=== PATIENT | male | born 1955 | race Caucasian/White ===

== ENCOUNTER 2018-06-28 09:42 | Emergency (ER) | payer MEDICAID ==
[~2018-06-28] VITALS: Ht 172.7 cm; Wt 61.0 kg
[2018-06-28] MEDS ORDERED: KETOROLAC 30MG/ML VIAL IV STA (11:46)
[2018-06-28] MEDS ORDERED: SODIUM CHLORIDE 0.9% 1,000 ML IV ONE (11:46)
[2018-06-28 12:10] LABS: EOSINOPHILS % 3.9 % (0.0-5.0); HEMATOCRIT. 39.4 % (42.0-52.0); HEMOGLOBIN. 13.2 g/dL (14.0-18.0); MEAN CORPUSCULAR HEMOGLOBIN 33.9 pg (28.0-32.0); MEAN CORPUSCULAR VOLUME 101.5 fL (80.0-94.0); MEAN PLATELET VOLUME 12.9 fl (7.4-10.4); MONOCYTES % 13.4 % (2.0-8.0); NEUTROPHILS % 55.7 % (40.0-76.0); PLATELET 89 x1000/uL (130-400); RED BLOOD CELL COUNT 3.89 mill/uL (4.7-6.1); RED CELL DISTRIBUTION WIDTH 13.8 % (11.6-14.6)
[2018-06-28 12:16] LABS: CHLORIDE 106 mEq/L (98-107)
[2018-06-28 12:32] LABS: INR 1.1; PROTHROMBIN TIME 11.7 sec (9.6-11.0)
[2018-06-28 14:00] VITALS: BP 132/84
== END 2018-06-28 14:09 | disposition home or self-care (01) ==
LOC: ER 09:42
DX: S20.219A Contusion of unspecified front wall of thorax, initial encounter (principal); V18.4XXA Pedal cycle driver injured in noncollision transport accident in traffic accident, initial encounter; Y93.55 Activity, bike riding; Y92.89 Other specified places as the place of occurrence of the external cause
CPT/HCPCS: 36415; 71045; 80053; 85025; 85610; 93005; 96374; 99284; J1885; J7030; Z7610

== ENCOUNTER 2018-07-14 19:47 | Emergency (ER) | payer MEDICAID ==
[~2018-07-14] VITALS: Ht 172.7 cm; Wt 63.6 kg
[2018-07-14] MEDS ORDERED: SODIUM CHLORIDE 0.9% 1,000 ML IV ONE (23:27)
[2018-07-14] MEDS ORDERED: LOPERAMIDE HCL 2MG CAPSULE PO ONE (23:30)
[2018-07-14 23:34] LABS: BASOPHILS % 2.6 % (0.0-2.0); EOSINOPHILS % 5.5 % (0.0-5.0); HEMATOCRIT. 37.5 % (42.0-52.0); LYMPHOCYTES % 30.6 % (20.0-50.0); MEAN CORPUSCULAR HEMOGLOBIN 35.1 pg (28.0-32.0); MEAN CORPUSCULAR VOLUME 101.3 fL (80.0-94.0); MONOCYTES % 10.1 % (2.0-8.0); NEUTROPHILS % 51.2 % (40.0-76.0)
[2018-07-14 23:43] LABS: CHLORIDE 109 mEq/L (98-107)
[2018-07-15 01:17] LABS: PLATELET 105 x1000/uL (130-400)
[2018-07-15 02:20] VITALS: BP 147/86
== END 2018-07-15 02:32 | disposition home or self-care (01) ==
LOC: ER 19:47
DX: R19.7 Diarrhea, unspecified (principal); F17.200 Nicotine dependence, unspecified, uncomplicated; E11.9 Type 2 diabetes mellitus without complications
CPT/HCPCS: 36415; 80053; 85025; 99283; J7030